=== PATIENT | female | born 2000 | race Two or more races ===

== ENCOUNTER 2025-01-01 05:30 | Emergency (ER) | payer BC, MEDICAID ==
[~2025-01-01] VITALS: Ht 121.9 cm; Wt 90.7 kg
[2025-01-01 05:32] VITALS: TEMP 97.5
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
--- NOTE | 2025-01-01 05:35 | NUR ---
SEEN BY DR PEREZ AT BEDSIDE
--- NOTE | 2025-01-01 06:24 | NUR ---
URINE COLLECTED AND SENT TO LAB
[2025-01-01 06:29] LABS: PLATELET COUNT (AUTO) 444 K/uL (150-450); RED BLOOD CELL COUNT(AUTO) 4.79 MIL/uL (4.0-5.2); RED CELL DISTRIBUTION WIDTH 15.7 % (11.5-15.0); WHITE BLOOD COUNT (AUTO) 9.1 K/uL (4.3-11.0)
[2025-01-01 06:51] LABS: CALCIUM, SERUM 8.8 mg/dL (8.5-10.1); CREATININE 0.7 mg/dL (0.6-1.3); SODIUM SERUM 141.0 mmol/L (136-145); UREA NITROGEN, BLOOD 8.0 mg/dL (7-18)
[2025-01-01 06:51] LABS: APPEARANCE,URINE CLEAR (CLEAR); BLOOD, URINE NEGATIVE Ery/uL (NEGATIVE); LEUKOCYTE ESTERASE ,URINE NEGATIVE (NEGATIVE); NITRITE, URINE NEGATIVE (NEGATIVE); UGLUCOSE NEGATIVE (NEGATIVE)
[2025-01-01 06:52] LABS: PREGNANCY TEST URINE QUAL NEGATIVE (NEGATIVE)
[2025-01-01 06:56] LABS: ALCOHOL, BLOOD 136.0 mg/dL (0-10); ASPARTATE AMINOTRANSFERASE 19.0 U/L (15-37); TOTAL PROTEIN, SERUM 8.3 g/dL (6.4-8.2)
--- NOTE | 2025-01-01 09:24 | NUR ---
CALLED STAT [facility] FOR READ
--- NOTE | 2025-01-01 10:05 | NUR ---
PT AWAKE, STABLE VITAL SIGNS. WILL CONTINUE TO MONITOR.
[2025-01-01] MEDS ORDERED: IBUP-1955 PO (10:25)
--- NOTE | 2025-01-01 10:39 | NUR ---
Patient discharged to home in stable condition. Written and verbal after care instructions given. Patient verbalizes understanding of instruction.
[2025-01-01 10:40] VITALS: BP 122/70; O2SAT 98
== END 2025-01-01 10:40 | disposition home or self-care (01) ==
LOC: ER 05:33
DX: S76.012A Strain of muscle, fascia and tendon of left hip, initial encounter (principal); S83.92XA Sprain of unspecified site of left knee, initial encounter; F10.129 Alcohol abuse with intoxication, unspecified; Z79.899 Other long term (current) drug therapy; J45.909 Unspecified asthma, uncomplicated; V89.0XXA Person injured in unspecified motor-vehicle accident, nontraffic, initial encounter; Y93.89 Activity, other specified; Y92.410 Unspecified street and highway as the place of occurrence of the external cause; Y99.9 Unspecified external cause status; Y90.9 Presence of alcohol in blood, level not specified
CPT/HCPCS: 36415; 71045-TC; 73502; 73564-TC; 80053-TC; 83735-TC; 84703-TC; 85025-TC; G0480